=== PATIENT | female | born 1960 | race African-American/Black ===

== ENCOUNTER 2019-11-13 23:21 | Observation (INO) ==
[2019-11-14] MEDS ORDERED: SODIUM CHLORIDE 0.9% 1,000 ML IV STA (00:16)
[2019-11-14 00:25] LABS: Basophils % 0.2 % (0.0-0.8); Eosinophils # 0.3 10*3/uL (0.0-0.87); Eosinophils % 2.4 % (0.00-10.9); Hematocrit 37.9 VOL% (35.7-47.0); Hemoglobin 12.8 GM/DL (12.0-16.0); Immature Granulocytes % 0.3 %; Immature Granulocytes Absolute 0.03 #; Lymphocytes # 5.3 10*3/uL (1.4-4.0); Mean Corpuscular HGB Conc 33.8 GM/DL (32-36); Mean Corpuscular Volume 87.3 FL (87-102); Mean Platelet Volume 9.8 FL (9.6-12.0); Monocytes % 9.8 % (1.7-12.7); Neutrophils % 42.3 % (38.7-73.9); Platelet Count 244 T/CUMM (130-400); Red Blood Count 4.34 MC/CUMM (3.8-5.5); Red Cell Distribution Width 14.5 % (9.3-17.3); White Blood Count 11.8 T/CUMM (4-12)
[2019-11-14 00:34] LABS: PT Patient Result 10.5 SECS (9.6-12.2)
[2019-11-14 00:40] LABS: Alanine Aminotransferase 26 U/L (13-56); Albumin 3.5 G/DL (3.4-5.0); Alkaline Phosphatase 118 U/L (45-117); Aspartate Amino Transferase 17 U/L (0-37); Bilirubin,Total < 0.39 MG/DL (0.2-1.0); Blood Urea Nitrogen 10 MG/DL (7-18); Calcium 9.3 MG/DL (8.5-10.1); Estimated Glom Filtration Rate 98 ML/MIN; Glucose 115 MG/DL (74-106); Total Protein 7.9 G/DL (6.4-8.3)
[2019-11-14] MEDS ORDERED: METOPROLOL TARTRATE 5 MG/5 ML VIAL IV ONE (00:40)
[2019-11-14] MEDS ORDERED: METOPROLOL TARTRATE 5 MG/5 ML VIAL IV STA (00:41)
[2019-11-14 00:51] LABS: Apearance,Urine CLEAR (Clear); Bilirubin,Urine Negative (Negative); Blood, Urine Small mg/dL (Negative); Glucose,Urine (UA) Negative (Negative); Ketones,Urine Negative (Negative); Nitrite,Urine Negative (Negative); Protein,Urine Negative; Squamous Epithelial Cell,Urine Occasional /HPF (0-10); Urine Color Straw (Yellow); Urine Specific Gravity 1.005 (1.001-1.035); Urine Urobilinogen < 2.0 EU/DL (0.2-1.0); WBC,Urine 1 /HPF (0-6)
[2019-11-14 01:08] LABS: Barbiturates Screen,Urine Negative (Negative); Benzodiazepines Screen,Urine Negative (Negative); Cannabinoid Screen,Urine Negative (Negative); Opiate Screen,Urine Negative (Negative); Phencyclidine Screen,Urine Negative (Negative)
[2019-11-14] MEDS ORDERED: ENOXAPARIN 30 MG/0.3 ML SYRINGE SUBCUT STA (01:13)
[2019-11-14] MEDS ORDERED: ACETAMINOPHEN 325 MG TABLET PO PRN (01:24)
[2019-11-14] MEDS ORDERED: ONDANSETRON 4 MG/2 ML VIAL IV PRN (01:24)
[2019-11-14] MEDS ORDERED: NICOTINE 21 MG/24 HR PATCH TRANSDERM PRN (01:24)
[2019-11-14] MEDS ORDERED: ALUMINUM/MAGNES/SIMETH MAX STR 30 ML UDCUP PO PRN (01:24)
[2019-11-14] MEDS ORDERED: hydrALAZINE 20 MG/1 ML VIAL IV PRN (01:24)
[2019-11-14] MEDS ORDERED: ENOXAPARIN 100 MG/ML SYRINGE SUBCUT ONE (01:38)
[2019-11-14 01:53] LABS: Risk Ratio 2.49; VLDL CHOLESTEROL 29.2 MG/DL
[2019-11-14] MEDS ORDERED: DILTIAZEM 100 MG VIAL.ADD IV STA (01:59)
[2019-11-14] MEDS ORDERED: DILTIAZEM 25 MG/5 ML VIAL IV ONE (01:59)
[2019-11-14] MEDS ORDERED: SODIUM CHLORIDE 0.9% 500 ML IV ONE (02:40)
[2019-11-14] MEDS: SODIUM CHLORIDE 0.9% 1,000 ML IV SCH ×2 (04:39→22:07)
[2019-11-14] MEDS ORDERED: POTASSIUM CHLORIDE 20 MEQ/15 ML UDCUP PO ONE (08:04)
[2019-11-14 08:28] LABS: Free T4 (Free Thyroxine) 1.22 NG/DL (0.76-1.46)
[2019-11-14] MEDS: ATORVASTATIN 20 MG TABLET PO SCH (08:41)
[2019-11-14] MEDS: APIXABAN 5 MG TABLET PO SCH ×2 (08:41→21:36)
[2019-11-14] MEDS ORDERED: hydroCHLOROthiazide 25 MG TABLET PO SCH (09:00)
[2019-11-14] MEDS ORDERED: amLODIPine 10 MG TABLET PO SCH (09:00)
[2019-11-14] MEDS: METOPROLOL TARTRATE 25 MG TABLET PO SCH ×2 (11:47→21:37)
[2019-11-14] MEDS ORDERED: POTASSIUM CHLORIDE 20 MEQ TABLET PO ONE ×2 (13:00→16:00)
[2019-11-14] MEDS: DILTIAZEM CD 180 MG CAPSULE PO SCH (17:12)
[2019-11-14] MEDS: MIDODRINE 5 MG TABLET PO SCH ×2 (17:13→21:36)
[2019-11-15 04:46] LABS: Basophils % 0.2 % (0.0-0.8); Eosinophils # 0.3 10*3/uL (0.0-0.87); Eosinophils % 2.5 % (0.00-10.9); Hemoglobin 11.7 GM/DL (12.0-16.0); Immature Granulocytes % 0.4 %; Immature Granulocytes Absolute 0.04 #; Lymphocytes # 4.1 10*3/uL (1.4-4.0); Lymphocytes % 40.9 % (21.3-54.2); Mean Corpuscular HGB Conc 31.6 GM/DL (32-36); Mean Corpuscular Volume 90.5 FL (87-102); Mean Platelet Volume 9.9 FL (9.6-12.0); Monocytes % 9.9 % (1.7-12.7); Neutrophils % 46.1 % (38.7-73.9); Platelet Count 237 T/CUMM (130-400); Red Blood Count 4.09 MC/CUMM (3.8-5.5); Red Cell Distribution Width 14.7 % (9.3-17.3); White Blood Count 9.9 T/CUMM (4-12)
[2019-11-15 05:23] LABS: Calcium 8.8 MG/DL (8.5-10.1)
[2019-11-15] MEDS ORDERED: POTASSIUM CHLORIDE 20 MEQ TABLET PO ONE (07:36)
[2019-11-15] MEDS: ATORVASTATIN 20 MG TABLET PO SCH (09:29)
[2019-11-15] MEDS: DILTIAZEM CD 180 MG CAPSULE PO SCH (09:30)
[2019-11-15] MEDS: METOPROLOL TARTRATE 25 MG TABLET PO SCH (09:31)
[2019-11-15] MEDS: MIDODRINE 5 MG TABLET PO SCH (09:31)
[2019-11-15 12:20] VITALS: BP 113/81
== END 2019-11-15 13:38 | disposition home or self-care (01) ==
LOC: N.EDINP 23:21 → N.ED 23:21 → N.EDINP 11-14 02:06 → N.TELES 11-14 02:45
PROVIDERS: ADMIT Internal Medicine; ATTEND Internal Medicine

== ENCOUNTER 2020-12-09 02:39 | Observation (INO) ==
[2020-12-09 03:04] LABS: Basophils % 0.2 % (0.0-0.8); Eosinophils # 0.2 10*3/uL (0.0-0.87); Eosinophils % 2.1 % (0.00-10.9); Hematocrit 39.2 VOL% (35.7-47.0); Hemoglobin 13.1 GM/DL (12.0-16.0); Immature Granulocytes % 0.2 %; Immature Granulocytes Absolute 0.02 #; Lymphocytes # 4.5 10*3/uL (1.4-4.0); Lymphocytes % 49.4 % (21.3-54.2); Mean Corpuscular HGB Conc 33.4 GM/DL (32-36); Mean Corpuscular Volume 88.9 FL (87-102); Mean Platelet Volume 9.3 FL (9.6-12.0); Monocytes % 6.8 % (1.7-12.7); Neutrophils % 41.3 % (38.7-73.9); Platelet Count 246 T/CUMM (130-400); Red Blood Count 4.41 MC/CUMM (3.8-5.5); Red Cell Distribution Width 15.5 % (9.3-17.3); White Blood Count 9.2 T/CUMM (4-12)
[2020-12-09 03:32] LABS: Albumin 3.9 G/DL (3.4-5.0); Bilirubin,Total 0.4 MG/DL (0.2-1.0); Calcium 9.1 MG/DL (8.5-10.1); Potassium 3.6 MMOL/L (3.5-5.1); Total Protein 7.3 G/DL (6.4-8.2)
[2020-12-09] MEDS ORDERED: DILTIAZEM 25 MG/5 ML VIAL IV ONE (03:42)
[2020-12-09] MEDS ORDERED: DILTIAZEM 50 MG/10 ML VIAL IV STA (03:47)
[2020-12-09] MEDS ORDERED: ENOXAPARIN 30 MG/0.3 ML SYRINGE SUBCUT STA (04:10)
[2020-12-09] MEDS ORDERED: ENOXAPARIN 100 MG/ML SYRINGE SUBCUT STA (04:13)
[2020-12-09] MEDS ORDERED: DEXTROSE 50% 25 GM/50 ML VIAL IV PRN (04:27)
[2020-12-09] MEDS ORDERED: GLUCAGON 1 MG VIAL IM PRN (04:27)
[2020-12-09] MEDS ORDERED: ONDANSETRON 4 MG/2 ML VIAL IV PRN (04:27)
[2020-12-09] MEDS ORDERED: ACETAMINOPHEN 325 MG TABLET PO PRN (04:27)
[2020-12-09] MEDS ORDERED: SODIUM CHLORIDE 0.9% 1,000 ML IV STA (04:59)
[2020-12-09 06:38] LABS: Risk Ratio 2.64
[2020-12-09] MEDS: INSULIN REGULAR 100 UNIT/ML SUBCUT SCH ×4 (08:07→21:21)
[2020-12-09] MEDS: PANTOPRAZOLE 40 MG TABLET PO SCH (09:42)
[2020-12-09] MEDS ORDERED: DIGOXIN 0.5 MG/2 ML AMP IV ONE (11:25)
[2020-12-09] MEDS ORDERED: POTASSIUM CHLORIDE 20 MEQ TABLET PO ONE (11:26)
[2020-12-09 11:54] LABS: Thyroid Stimulating Hormone 3.07 uIU/ml (0.358-3.74)
[2020-12-09] MEDS: APIXABAN 5 MG TABLET PO SCH ×2 (12:22→21:01)
[2020-12-09] MEDS: DILTIAZEM INJ 100 MG in SODIUM CHLORIDE 0.9% 100 ML IV SCH (12:24)
[2020-12-09] MEDS ORDERED: ENOXAPARIN 100 MG/ML SYRINGE SUBCUT SCH (20:00)
[2020-12-09] MEDS ORDERED: ATORVASTATIN 20 MG TABLET PO SCH (21:00)
[2020-12-09] MEDS ORDERED: MONTELUKAST 10 MG TABLET PO SCH (21:00)
[2020-12-09] MEDS ORDERED: FLUTICASONE 50 MCG NASAL SPRAY 16 GM BOTTLE BOTH NARES SCH (21:00)
[2020-12-09] MEDS: ASCORBIC ACID 500 MG TABLET PO SCH (21:01)
[2020-12-09] MEDS: METOPROLOL TARTRATE 25 MG TABLET PO SCH (21:21)
[2020-12-10 06:03] LABS: Basophils % 0.4 % (0.0-0.8); Eosinophils # 0.2 10*3/uL (0.0-0.87); Eosinophils % 2.2 % (0.00-10.9); Hematocrit 36.8 VOL% (35.7-47.0); Hemoglobin 12.1 GM/DL (12.0-16.0); Immature Granulocytes % 0.2 %; Immature Granulocytes Absolute 0.02 #; Lymphocytes # 4.1 10*3/uL (1.4-4.0); Lymphocytes % 50.4 % (21.3-54.2); Mean Corpuscular HGB Conc 32.9 GM/DL (32-36); Mean Corpuscular Volume 88.2 FL (87-102); Monocytes % 6.8 % (1.7-12.7); Platelet Count 244 T/CUMM (130-400); Red Blood Count 4.17 MC/CUMM (3.8-5.5); Red Cell Distribution Width 15.4 % (9.3-17.3); White Blood Count 8.1 T/CUMM (4-12)
[2020-12-10 06:16] LABS: Calcium 8.6 MG/DL (8.5-10.1); Potassium 3.8 MMOL/L (3.5-5.1)
[2020-12-10 06:55] LABS: Hypochromasia 1+; Lymphocytes 53 % (20-55); Microcytosis 1+; Segmented Neutrophils 43 % (50-85); Target Cells Slight; Total Cells Counted 100
[2020-12-10 06:56] LABS: Platelet Estimate Normal
[2020-12-10] MEDS ORDERED: POTASSIUM CHLORIDE 20 MEQ TABLET PO ONE (08:20)
[2020-12-10] MEDS ORDERED: BISACODYL 5 MG TABLET PO ONE (08:55)
[2020-12-10] MEDS ORDERED: DILTIAZEM CD 180 MG CAPSULE PO SCH (09:00)
[2020-12-10] MEDS ORDERED: ASPIRIN EC 81 MG TABLET PO SCH (09:00)
[2020-12-10] MEDS ORDERED: CETIRIZINE 10 MG TABLET PO SCH (09:00)
[2020-12-10] MEDS: INSULIN REGULAR 100 UNIT/ML SUBCUT SCH ×2 (09:20→12:51)
[2020-12-10] MEDS: APIXABAN 5 MG TABLET PO SCH (09:21)
[2020-12-10] MEDS: ASCORBIC ACID 500 MG TABLET PO SCH (09:21)
[2020-12-10] MEDS: METOPROLOL TARTRATE 25 MG TABLET PO SCH (09:22)
[2020-12-10] MEDS: PANTOPRAZOLE 40 MG TABLET PO SCH (09:22)
[2020-12-10] MEDS: DILTIAZEM INJ 100 MG in SODIUM CHLORIDE 0.9% 100 ML IV SCH (11:38)
[2020-12-10 13:40] VITALS: BP 136/77
== END 2020-12-10 15:06 | disposition home or self-care (01) ==
LOC: N.EDINP 02:39 → N.ED 02:39 → SUATTDRO 04:27 → N.EDINP 05:58 → N.TELEN 06:23
PROVIDERS: ADMIT Internal Medicine; ATTEND Internal Medicine Geriatric Medicine